=== PATIENT | female | born 1945 | race Caucasian/White ===

== ENCOUNTER 2020-02-29 12:54 | Outpatient (CLI) | payer MEDICARE, OTHER, SELFPAY ==
--- NOTE | ~2020-02-29 | US_ITS ---
EXAMINATION: US FNA w image guidance DATE: 02/29/2020 13:59 INDICATION: Left thyroid nodule. TECHNIQUE: The procedure and its benefits, risks, and benefits were discussed with the patient. Risks specifical ly discussed included bleeding. The patient verbalized understanding of the risks and agreed to proce ed. The neck was prepped and draped in the usual sterile manner. 1% lidocaine was used for local ane sthesia. 5 passes were made with a 25G needle into the lesion. Appropriate needle location was docu mented with continuous sonographic guidance. There were no immediate complications. The patient unde rstood to call the ordering physician for results after a week and a half and verbalized that underst anding. FINDINGS: Grayscale ultrasound images demonstrate needles advanced into a 2.6 cm left thyroid nodule for biopsy . IMPRESSION: 1. Ultrasound-guided fine needle aspiration of a left thyroid nodule. Reviewed, dictated and finalized at location A.
== END 2020-02-29 12:55 | disposition home or self-care (01) ==
PROVIDERS: PCP Family Medicine; Visit Provider Internal Medicine Endocrinology, Diabetes & Metabolism
DX: E04.1 Nontoxic single thyroid nodule (principal); R73.01 Impaired fasting glucose; E55.9 Vitamin D deficiency, unspecified; E03.9 Hypothyroidism, unspecified; E53.8 Deficiency of other specified B group vitamins
CPT/HCPCS: 10005; 88173; 88305

== ENCOUNTER 2020-05-21 01:31 | Outpatient (CLI) | payer MEDICARE, OTHER, SELFPAY ==
[2020-05-21 19:20] LABS: SARS-CoV-2 RNA PCR Negative
== END 2020-05-21 01:32 | disposition home or self-care (01) ==
LOC: ANHCOVIDDT 01:32
PROVIDERS: PCP Family Medicine; Visit Provider Obstetrics & Gynecology Gynecology
DX: Z01.812 Encounter for preprocedural laboratory examination (principal); Z20.828 Contact with and (suspected) exposure to other viral communicable diseases
CPT/HCPCS: 87635; C9803; U0003

== ENCOUNTER 2020-05-23 01:18 | Day surgery (SDC) | payer MEDICARE, OTHER, SELFPAY ==
[2020-05-14 13:54] VITALS: BMI 36.5
--- NOTE | 2020-05-23 07:42 | WPDANESEPPF ---
Anes - Initial Pre Proc Eval Procedure: Operation Date: 05/23/20 09:00 Proposed Procedures p Hysteroscopy, Dilation and Curettage - Sheron Torrez MD Date/Time: 05/23/20 07:42 Surgeon: Sheron Torrez MD Pre Op Diagnosis: post menopausal bleeding Patient Data Age: 74 Gender: F Height: 5 ft 7 in Weight: 105.69 kg Allergies Allergy/AdvReac Type Severity Reaction Status Date / Time No Known Allergies Allergy Unverified 05/14/20 13:55 Home Medications Medication Instructions Recorded Confirmed Type albuterol sulfate 1 puff INHALATION DIRECTED PRN 05/14/20 05/14/20 History alprazolam 1 mg PO DAILY PRN 05/14/20 05/14/20 History aspirin 81 mg PO DAILY 05/14/20 05/14/20 History cyanocobalamin (vitamin B-12) 1,000 mcg PO DAILY 05/14/20 05/14/20 History [Vitamin B-12] diclofenac sodium 1 g TOPICAL DIRECTED PRN 05/14/20 05/14/20 History diltiazem HCl 60 mg PO BID 05/14/20 05/14/20 History ergocalciferol (vitamin D2) 1,250 mcg PO WEEKLY 05/14/20 05/14/20 History [Vitamin D2] fluticasone propionate 1 spray INTRANASAL DAILY PRN 05/14/20 05/14/20 History furosemide 20 mg PO DAILY 05/14/20 05/14/20 History gabapentin 600 mg PO HS 05/14/20 05/14/20 History hydrocodone-acetaminophen 1 tablet PO Q6H PRN 05/14/20 05/14/20 History levothyroxine 88 mcg PO DAILY 05/14/20 05/14/20 History melatonin 5 mg PO HS 05/14/20 05/14/20 History pantoprazole 40 mg PO DAILY 05/14/20 05/14/20 History potassium chloride 10 meq PO DAILY 05/14/20 05/14/20 History rosuvastatin 40 mg PO DAILY 05/14/20 05/14/20 History Patient hx anesthesia problems: none Family hx anesthesia problems: none PMFSH Past Medical History Medical History (Updated 05/23/20 @ 07:43 by Ahmet Santiago MD) Anxiety GERD (gastroesophageal reflux disease) HTN (hypertension) Obesity MARY KAY (obstructive sleep apnea) Surgical History Surgical History (Updated 05/23/20 @ 07:44 by Ahmet Santiago MD) H/O exploratory laparotomy History of cholecystectomy History of total hip arthroplasty History of total knee arthroplasty Social History Social History Smoking status: Never smoker Spiritual care concerns: No Anes - Eval Final PreProcedure Day of Procedure 05/23/20 07:42 Patient weight: obese Heart: regular rate and rhythm Lungs: clear to auscultation Airway: Mallampati scale class II Neurological: alert and oriented Last oral intake: >/= 8 hours ASA classification: III Emergent: no Anesthetic plan: proceed Anesthesia type and monitoring: general and standard monitoring Informed Consent: The patient's anesthetic plan and its attendant risks and benefits were discussed with the patient/family/POA. Questions were solicited and answers provided to the satisfaction of the patient/family/POA.
[2020-05-23] MEDS: LACTATED RINGERS 1,000 ML 30 ML IV CONT (08:03)
[2020-05-23] MEDS: ACETAMINOPHEN 500 MG TABLET 1000 MG PO (08:07)
[2020-05-23 08:39] VITALS: BP 124/56; PULSE 81; RESP 16; TEMP 36.6; O2SAT 97; BMI 36.9
--- NOTE | 2020-05-23 09:11 | PM.HPGS ---
History of Present Illness History of Present Illness Consent: Risks, benefits, and alternatives have been discussed and questions answered. Patient agrees to proceed with procedure. Chief complaint: post menopausal bleeding Narrative: Anitha Carter is a 74 year old female with postmenopausal bleeding. Recommend to proceed with D&C hysteroscopy. Risks of infection, bleeding, perforation, and possible pathology reviewed. Agrees to proceed. [facility] Past Medical History Medical History (Updated 05/23/20 @ 09:13 by Sheron Torrez MD) Anxiety GERD (gastroesophageal reflux disease) History of hysteroscopy with large polyp 2014 HTN (hypertension) Obesity MARY KAY (obstructive sleep apnea) Surgical History Surgical History (Updated 05/23/20 @ 07:44 by Ahmet Santiago MD) H/O exploratory laparotomy History of cholecystectomy History of total hip arthroplasty History of total knee arthroplasty Social History Social History Smoking status: Never smoker Spiritual care concerns: No Meds Home Medications and Allergies Home Medications Medication Instructions Recorded Confirmed Type albuterol sulfate 1 puff INHALATION DIRECTED PRN 05/14/20 05/23/20 History alprazolam 1 mg PO DAILY PRN 05/14/20 05/23/20 History aspirin 81 mg PO DAILY 05/14/20 05/23/20 History cyanocobalamin (vitamin B-12) 1,000 mcg PO DAILY 05/14/20 05/23/20 History [Vitamin B-12] diclofenac sodium 1 g TOPICAL DIRECTED PRN 05/14/20 05/23/20 History diltiazem HCl 60 mg PO BID 05/14/20 05/23/20 History ergocalciferol (vitamin D2) 1,250 mcg PO WEEKLY 05/14/20 05/23/20 History [Vitamin D2] fluticasone propionate 1 spray INTRANASAL DAILY PRN 05/14/20 05/23/20 History furosemide 20 mg PO DAILY 05/14/20 05/23/20 History gabapentin 600 mg PO HS 05/14/20 05/23/20 History hydrocodone-acetaminophen 1 tablet PO Q6H PRN 05/14/20 05/23/20 History levothyroxine 88 mcg PO DAILY 05/14/20 05/23/20 History melatonin 5 mg PO HS 05/14/20 05/23/20 History pantoprazole 40 mg PO DAILY 05/14/20 05/23/20 History potassium chloride 10 meq PO DAILY 05/14/20 05/23/20 History rosuvastatin 40 mg PO DAILY 05/14/20 05/23/20 History Allergies Allergy/AdvReac Type Severity Reaction Status Date / Time No Known Allergies Allergy Verified 05/23/20 07:49 Vital Signs Vital Signs - 24 hr 05/23/20 08:39 Temperature 97.9 F Pulse Rate 81 Respiratory Rate 16 Blood Pressure 124/56 L Pulse Oximetry 97 Exam Const: General: healthy appearing and alert Orientation/consciousness: patient oriented x3 Resp: Effort & Inspection: normal respiratory effort Auscultation: clear to auscultation bilaterally Cardio: Rate: regular rate Rhythm: regular rhythm GI: GI Palp: Yes Soft to palpation, No Tenderness to palpation present (GI) and No Palpable mass present : External Female Exam: normal external appearance Speculum Exam - Vagina: normal appearance of the vagina and normal vaginal discharge Speculum Exam - Cervix: normal appearance of the cervix Bimanual exam- vagina & uterus: uterine size normal and consistency normal Bimanual Exam- Adnexa, other: normal adnexae and No adnexal tenderness Neuro: General: patient oriented x3 Assessment and Plan Assessment and plan (1) Post-menopausal bleeding: Code(s): N95.0 - Postmenopausal bleeding Status: Acute Assessment and Plan: proceed with hysteroscopy and D&C
[2020-05-23] MEDS: KETOROLAC 30 MG/ML VIAL (*BKC) IV PUSH (09:30)
--- NOTE | 2020-05-23 09:44 | SUR.OPER ---
975ML HYSTEROSCOPY IN AND 950 ML OUT
--- NOTE | 2020-05-23 09:50 | P.OP_ITS ---
Procedure Note - Detailed Date of procedure: 05/23/20 Pre-op diagnosis: post menopausal bleeding Post-op diagnosis: same Procedure performed: D&C hysteroscopy with myosure resection Description of procedure: The patient was taken to the operating room and placed in the dorsal lithotomy position under anesthesia. She was prepped and draped in the usual sterile fashion. [place] speculum was placed in the vagina and the cervix is grasped on the anterior lip with a tenaculum. The uterus is sounded to 10cm. The cervix is serially dilated with Hegars. The diagnostic hysteroscope was placed with the above-stated findings. The MyoSure device is opened and placed. Under direct visualization the polyp is excised. The MyoSure device is removed and the medium sharp curette was used to curette the endometrium until a good uterine cry is noted in all areas. All instruments are removed. The patient is taken to recovery in stable condition. Anesthesia: MAC and local Surgeon: Sheron Torrez MD Estimated blood loss (mL): 5 Drains: No Packing: No Pathology: yes (endometrial curettings and shavings) Complications: No immediate complications Condition: stable Disposition: PACU Findings: uterus 10 cm; large u shaped polyp attached on right lateral wall; otherwise atrophic appearing endometrium
[2020-05-23 09:51] VITALS: BP 128/52; PULSE 74; RESP 16; O2SAT 94
[2020-05-23 10:21] VITALS: BP 102/56; PULSE 64; RESP 16
== END 2020-05-23 10:50 | disposition home or self-care (01) ==
PROVIDERS: PCP Family Medicine; Visit Provider Obstetrics & Gynecology Gynecology
PROC: 0U5B8ZZ Destruction of Endometrium, Via Natural or Artificial Opening Endoscopic (ICD-10-PCS; CPT 58563; principal; 2020-05-23 09:00)
DX: N95.0 Postmenopausal bleeding (principal); N85.01 Benign endometrial hyperplasia; I10 Essential (primary) hypertension; K21.9 Gastro-esophageal reflux disease without esophagitis; G47.33 Obstructive sleep apnea (adult) (pediatric); F41.9 Anxiety disorder, unspecified; Z79.82 Long term (current) use of aspirin; E66.9 Obesity, unspecified; Z68.36 Body mass index [BMI] 36.0-36.9, adult
CPT/HCPCS: 58558; 88305; A9270; J1885; J2704; J3010; J7030; J7120

== ENCOUNTER → 2021-02-04 13:21 | Outpatient (CLI) | payer MEDICARE, SELFPAY ==
--- NOTE | ~2021-02-04 | DEXA_ITS ---
Bone Density Report Name: Anitha Carter Age: 75 Sex: Female Ethnicity: White Date of : 1945 Indication: monitoring treatment; height loss; prior fracture; postmenopausal Referring Provider: ANTONIO MAJANO Study: Bone densitometry was performed. Exam Date: February 04, 2021 Accession number: [id number] Bone Density: Region BMD T-score Z-score Classification AP Spine (L1-L4) 1.214 1.5 4.0 Normal World Health Organization criteria for BMD impression classify patients as: Normal (T-score at or above -1.0), Osteopenia (T-score between -1.0 and -2.5), or Osteoporosis (T-score at or below -2.5). Previous Exams: Region Exam Age BMD T-score BMD Change BMD Change Date g/cm2 vs Baseline vs Previous AP Spine(L1-L4) 02/04/2021 75 1.214 1.5 0.128 0.038* 07/06/2017 71 1.176 1.2 0.090 0.041 06/30/2015 69 1.135 0.8 0.049* 0.031* 06/20/2013 67 1.104 0.5 0.018 0.018 05/12/2011 65 1.086 0.4 *Denotes significance at 95% confidence level, LSC for AP Spine = 0.022 g/cm2 Clinical Information Provided by Patient: Has had a low trauma fracture Is being treated for osteoporosis Has used the following medications: HRT (i.e. estrogen/hormone therapy), Vitamin D, MTV Patient maximum height was 69.75 Menopause Age: 49 No regular weight bearing exercise Does not regularly consume dairy products Drinks caffeinated beverages Onset of menses at age 10 Number of children 5 Impression: The patient has normal bone mass. The patient has risk factors, including: previous fracture. No significant bone loss was observed. Discussion: PATIENT UNDER TREATMENT WITH NO SIGNIFICANT BMD LOSS SINCE LAST EXAM. In an untreated patient, BMD typically declines with age. A lack of decline or gain is usually a sign that treatment is efficacious and fracture risk is reduced. It is important to ask patients whether they are taking their medications and to encourage continued and appropriate compliance with their osteoporosis therapies to reduce fracture risk. It is also important to review their risk factors and encourage appropriate calcium and vitamin D intakes, exercise, fall prevention and other lifestyle measures. Follow-Up: Consider a repeat BMD and Vertebral Fracture Assessment (VFA) exam in 2 years or sooner if medically necessary, to reassess this patient's status. Reported by: ANIL on 02/04/2021 1:46:00 PM. Reviewed, dictated and finalized at location ALj CHEEK
--- NOTE | ~2021-02-04 | MM_ITS ---
EXAMINATION: MM screening ifeanyi BI w geovany HISTORY: Screening mammogram TECHNIQUE: Craniocaudal and mediolateral oblique 3-D tomosynthesis images were obtained and synthetic 2-D images were generated. CAD analysis was submitted and interpreted. COMPARISON: 10/04/2018, 07/06/2017, 07/05/2016 bilateral digital screening mammogram examinations BREAST PARENCHYMAL COMPOSITION: There are scattered areas of fibroglandular density. FINDINGS: There is no evidence of suspicious mass, calcification, or architectural distortion to sugg est malignancy in either breast. There has been no suspicious interval change. IMPRESSION: 1. No mammographic evidence of malignancy. 2. Recommend routine screening mammography in one year. BI-RADS Category 1: Negative Reviewed, dictated and finalized at location D.
== END ==
PROVIDERS: PCP Family Medicine; Visit Provider Obstetrics & Gynecology Gynecology
DX: Z12.31 Encounter for screening mammogram for malignant neoplasm of breast (principal); Z78.0 Asymptomatic menopausal state
CPT/HCPCS: 77063; 77067; 77080

== ENCOUNTER → 2021-03-05 13:51 | Outpatient (CLI) | payer MEDICARE, SELFPAY ==
--- NOTE | ~2021-03-05 | US_ITS ---
EXAMINATION: US transvaginal DATE: 03/05/2021 14:24 INDICATION: Postmenopausal bleeding. TECHNIQUE: Multiple transvaginal sonographic images of the pelvis were obtained. COMPARISON: None. FINDINGS: The uterus measures 8.9 x 4.7 x 4.7 cm. There is no free fluid in the pelvis. The endometrial complex measures 15 mm in thickness. The ovaries are not visualized. IMPRESSION: 1. Thickened endometrial complex. The differential diagnosis includes endometrial hyperplasia, polyp, and carcinoma. Biopsy is recommended. Reviewed, dictated and finalized at location A. IMPRESSION: 1. Thickened endometrial complex. The differential diagnosis includes endometri al hyperplasia, polyp, and carcinoma. Biopsy is recommended.
== END ==
PROVIDERS: PCP Family Medicine; Visit Provider Obstetrics & Gynecology Gynecology
DX: N95.0 Postmenopausal bleeding (principal)
CPT/HCPCS: 76830

== ENCOUNTER → 2021-03-24 01:03 | Outpatient (CLI) | payer MEDICARE, SELFPAY ==
[2021-03-24 17:38] LABS: SARS-CoV-2 RNA PCR Negative
== END ==
PROVIDERS: PCP Family Medicine; Visit Provider Obstetrics & Gynecology Gynecology
DX: Z01.812 Encounter for preprocedural laboratory examination (principal); Z20.822 Contact with and (suspected) exposure to COVID-19
CPT/HCPCS: C9803; U0003; U0005

== ENCOUNTER 2021-03-26 11:30 | Outpatient (CLI) | payer MEDICARE, SELFPAY ==
[2021-03-26 12:03] LABS: Anion Gap 8 mmol/L (8-16); Blood Urea Nitrogen 13 mg/dL (7-17); Calcium 10.2 mg/dL (8.4-10.2); Carbon Dioxide 28 mmol/L (22-30); Chloride 105 mmol/L (98-107); Estimated Glomerular Filt Rate 48; Glucose 109 mg/dL (65-105); Potassium 4.4 mmol/L (3.4-5.0); Sodium 141 mmol/L (137-145)
== END 2021-03-26 11:31 | disposition home or self-care (01) ==
LOC: ANHSURGERY 11:35
PROVIDERS: Anesthesiology; PCP Family Medicine; Visit Provider Obstetrics & Gynecology Gynecology
DX: I10 Essential (primary) hypertension (principal); Z01.818 Encounter for other preprocedural examination
CPT/HCPCS: 36415; 80048

== ENCOUNTER 2021-03-27 00:49 | Day surgery (SDC) | payer MEDICARE, SELFPAY ==
[2021-03-25 12:15] VITALS: BMI 34.2
[2021-03-27 06:30] VITALS: BP 135/81; PULSE 89; RESP 20; TEMP 36.4; O2SAT 98
--- NOTE | 2021-03-27 07:20 | WPDHPUPDATE1 ---
History and Physical Update Update Date/Time: 03/27/21 07:20 History and Physical has been reviewed, including an updated exam of the patient. There are NO changes in the patient's condition. Risks, benefits, and alternatives have been discussed and questions answered. Patient agrees to proceed with procedure.
--- NOTE | 2021-03-27 07:20 | PM.HPGS ---
History of Present Illness History of Present Illness Consent: Risks, benefits, and alternatives have been discussed and questions answered. Patient agrees to proceed with procedure. Chief complaint: post menopausal bleeding Narrative: Anitha Carter is a 75 year old female with a history simple hyperplasia without atypia in May of 2020. Repeat biopsy after progesterone revealed normal endometrium. Patient has postmenopausal bleeding and ultrasound was repeated showing lining to be 15mm. Is recommended to proceed with a repeat hysteroscopy D&C and the patient agrees to proceed. Risks of infection, bleeding, and perforation are reviewed. Possible pathology is discussed. Review of Systems Constitutional: Constitutional: Reports fatigue Gastrointestinal: Gastrointestinal: Reports constipation [facility] Past Medical History Medical History (Updated 03/27/21 @ 07:27 by Sheron Torrez MD) Anxiety GERD (gastroesophageal reflux disease) HTN (hypertension) Hypercholesteremia Hypothyroid (normal spontaneous vaginal delivery) x 4 Obesity MARY KAY (obstructive sleep apnea) Surgical History Surgical History (Updated 03/27/21 @ 07:27 by Sheron Torrez MD) H/O exploratory laparotomy H/O thyroidectomy History of section, low transverse History of cholecystectomy History of hysteroscopy with large polyp 2014 endometrial hyperplasia-simple without atypia 05/2020 History of repair of hiatal hernia History of total hip arthroplasty bilateral History of total knee arthroplasty Social History Social History Years smoked: 5 Smoking status: Former smoker Tobacco type: cigarettes Smoking end date: 09/12/69 Living arrangements: with family Spiritual care concerns: No Meds Home Medications and Allergies Home Medications Medication Instructions Recorded Confirmed Type alprazolam 1 mg PO BID PRN 05/14/20 03/25/21 History diclofenac sodium 1 g TOPICAL DIRECTED PRN 05/14/20 03/25/21 History diltiazem HCl 60 mg PO BID 05/14/20 03/25/21 History ergocalciferol (vitamin D2) 1,250 mcg PO WEEKLY 05/14/20 03/25/21 History [Vitamin D2] fluticasone propionate 1 spray INTRANASAL DAILY PRN 05/14/20 03/25/21 History furosemide 20 mg PO DAILY 05/14/20 03/25/21 History gabapentin 600 mg PO HS 05/14/20 03/25/21 History hydrocodone-acetaminophen 1 tablet PO Q6H PRN 05/14/20 03/25/21 History levothyroxine 88 mcg PO DAILY 05/14/20 03/25/21 History melatonin 5 mg PO HS 05/14/20 03/25/21 History potassium chloride 10 meq PO DAILY 05/14/20 03/25/21 History rosuvastatin 40 mg PO HS 05/14/20 03/25/21 History ascorbic acid (vitamin C) 500 mg PO DAILY 03/25/21 03/25/21 History aspirin 325 mg PO DAILY 03/25/21 03/25/21 History multivit,Ca,xsjs-EK-odslgz-lut 1 tablet PO DAILY 03/25/21 03/25/21 History [Complete Multi] norethindrone acetate 5 mg PO HS 03/25/21 03/25/21 History promethazine 25 mg PO PRN PRN 03/25/21 03/25/21 History Allergies Allergy/AdvReac Type Severity Reaction Status Date / Time No Known Allergies Allergy Verified 03/25/21 12:02 Exam Const: General: healthy appearing and alert Orientation/consciousness: patient oriented x3 Resp: Effort & Inspection: normal respiratory effort Auscultation: clear to auscultation bilaterally Cardio: Rate: regular rate Rhythm: regular rhythm GI: GI Palp: Yes Soft to palpation, No Tenderness to palpation present (GI) and No Palpable mass present : External Female Exam: normal external appearance Speculum Exam - Vagina: normal appearance of the vagina, normal vaginal discharge and other (dark blood present) Speculum Exam - Cervix: normal appearance of the cervix Bimanual exam- vagina & uterus: uterine size normal and consistency normal Bimanual Exam- Adnexa, other: normal adnexae and No adnexal tenderness Neuro: General: patient oriented x3 Assessment and Plan Assessment and
--- NOTE | 2021-03-27 07:21 | WPDANESEPPF ---
Anes - Initial Pre Proc Eval Procedure: Operation Date: 03/27/21 08:15 Proposed Procedures p Hysteroscopy Dilation and Curettage - Sheron Torrez MD Date/Time: 03/27/21 07:21 Surgeon: Sheron Torrez MD Pre Op Diagnosis: post menopausal bleeding Patient Data Age: 75 Gender: F Height: 1.73 m Weight: 102.1 kg Allergies Allergy/AdvReac Type Severity Reaction Status Date / Time No Known Allergies Allergy Verified 03/25/21 12:02 Home Medications Medication Instructions Recorded Confirmed Type alprazolam 1 mg PO BID PRN 05/14/20 03/25/21 History diclofenac sodium 1 g TOPICAL DIRECTED PRN 05/14/20 03/25/21 History diltiazem HCl 60 mg PO BID 05/14/20 03/25/21 History ergocalciferol (vitamin D2) 1,250 mcg PO WEEKLY 05/14/20 03/25/21 History [Vitamin D2] fluticasone propionate 1 spray INTRANASAL DAILY PRN 05/14/20 03/25/21 History furosemide 20 mg PO DAILY 05/14/20 03/25/21 History gabapentin 600 mg PO HS 05/14/20 03/25/21 History hydrocodone-acetaminophen 1 tablet PO Q6H PRN 05/14/20 03/25/21 History levothyroxine 88 mcg PO DAILY 05/14/20 03/25/21 History melatonin 5 mg PO HS 05/14/20 03/25/21 History potassium chloride 10 meq PO DAILY 05/14/20 03/25/21 History rosuvastatin 40 mg PO HS 05/14/20 03/25/21 History ascorbic acid (vitamin C) 500 mg PO DAILY 03/25/21 03/25/21 History aspirin 325 mg PO DAILY 03/25/21 03/25/21 History multivit,Ca,nmqw-KQ-hxsdbk-lut 1 tablet PO DAILY 03/25/21 03/25/21 History [Complete Multi] norethindrone acetate 5 mg PO HS 03/25/21 03/25/21 History promethazine 25 mg PO PRN PRN 03/25/21 03/25/21 History Patient hx anesthesia problems: none Family hx anesthesia problems: none PMFSH Past Medical History Medical History Anxiety GERD (gastroesophageal reflux disease) HTN (hypertension) Obesity MARY KAY (obstructive sleep apnea) Surgical History Surgical History H/O exploratory laparotomy History of cholecystectomy History of hysteroscopy with large polyp 2014 History of total hip arthroplasty History of total knee arthroplasty Social History Social History Years smoked: 5 Smoking status: Former smoker Tobacco type: cigarettes Smoking end date: 09/12/69 Living arrangements: with family Spiritual care concerns: No Anes - Eval Final PreProcedure Day of Procedure 03/27/21 07:21 Patient weight: obese Heart: regular rate and rhythm Lungs: clear to auscultation Airway: Mallampati scale class II Neurological: alert and oriented Last oral intake: >/= 8 hours ASA classification: III Emergent: no Anesthetic plan: proceed Anesthesia type and monitoring: general GIVS and standard monitoring Informed Consent: The patient's anesthetic plan and its attendant risks and benefits were discussed with the patient/family/POA. Questions were solicited and answers provided to the satisfaction of the patient/family/POA.
[2021-03-27] MEDS: LACTATED RINGERS 1,000 ML 30 ML IV CONT (08:10)
[2021-03-27] MEDS: ACETAMINOPHEN 500 MG TABLET 1000 MG PO (08:15)
[2021-03-27 08:53] VITALS: BP 126/70; PULSE 72; RESP 16; O2SAT 100
--- NOTE | 2021-03-27 08:54 | W.PM.PROC2 ---
Procedure Note - Detailed Date of Procedure 03/27/21 Pre-op Diagnosis post menopausal bleeding Post-op Diagnosis same Procedure Performed D&C hysteroscopy with MyoSure resection Surgeon Sheron Torrez MD Anesthesia MAC and local Findings uterus sounds to 9cm; multiple polyps; the remainder of the endometrium appears atrophic Description of Procedure the patient was taken to the operating room and placed under anesthesia in the dorsal lithotomy position. She is prepped and draped in the usual sterile fashion. [place] speculum was placed in the vagina and the cervix is grasped on the anterior lip with a tenaculum. The cervix is injected with 1% lidocaine in each quadrant. The uterus is sounded to 9cm. The cervix was serially dilated with Hegars. The diagnostic hysteroscope was placed with the stated findings. The MyoSure device is opened and placed and the polyps are removed. The MyoSure device is removed. Sharp curette is used to curette the endometrium until a good uterine cry was noted in all areas. Minimal material is obtained. All instruments are removed and the patient awakened from anesthesia and taken to recovery in stable condition. The sponge, needle, and instrument counts are correct per the OR staff. Estimated Blood Loss 5 Drains No Packing No Pathology yes ( Endometrial shavings and curettings) Complications No immediate complications Condition stable Disposition PACU
[2021-03-27] MEDS: fentaNYL CITRATE INJ (*CRX) 100 MCG/2 ML VIAL 25 MCG IV PUSH ×4 (09:10→09:32)
[2021-03-27 09:20] VITALS: BP 149/64; PULSE 69; RESP 18; O2SAT 98
[2021-03-27] MEDS: KETOROLAC 30 MG/ML VIAL (*BKC) IV PUSH (09:40)
[2021-03-27 09:50] VITALS: BP 134/61; PULSE 68; RESP 18; O2SAT 97
[2021-03-27 10:10] VITALS: BP 135/64; PULSE 68; RESP 18; O2SAT 98
== END 2021-03-27 10:23 | disposition home or self-care (01) ==
PROVIDERS: PCP Family Medicine; Visit Provider Obstetrics & Gynecology Gynecology
PROC: 0U5B8ZZ Destruction of Endometrium, Via Natural or Artificial Opening Endoscopic (ICD-10-PCS; CPT 58563; principal; 2021-03-27 08:15)
DX: N95.0 Postmenopausal bleeding (principal); N84.0 Polyp of corpus uteri; I10 Essential (primary) hypertension; G47.33 Obstructive sleep apnea (adult) (pediatric); K21.9 Gastro-esophageal reflux disease without esophagitis; F41.9 Anxiety disorder, unspecified; E66.9 Obesity, unspecified; Z68.32 Body mass index [BMI] 32.0-32.9, adult; Z87.891 Personal history of nicotine dependence
CPT/HCPCS: 58558; 88305; A9270; J1885; J2250; J2405; J2704; J3010; J7030; J7120

== ENCOUNTER → 2021-07-10 02:27 | Outpatient (CLI) | payer MEDICARE, SELFPAY ==
[2021-07-10 17:01] LABS: SARS-CoV-2 RNA PCR Negative
== END ==
PROVIDERS: PCP Family Medicine; Visit Provider Obstetrics & Gynecology Gynecology
DX: Z01.812 Encounter for preprocedural laboratory examination (principal); Z20.822 Contact with and (suspected) exposure to COVID-19
CPT/HCPCS: C9803; U0003; U0005

== ENCOUNTER 2021-07-10 08:36 | Outpatient (CLI) | payer MEDICARE, SELFPAY ==
--- NOTE | 2021-07-10 08:45 | ECG_ITS ---
Measurements Intervals [place] Rate: 71 P: 37 TN: 164 QRS: -6 QRSD: 90 T: 17 QT: 372 QTc: 407 Interpretive Statements SINUS RHYTHM VOLTAGE CRITERIA FOR LVH BASELINE ARTIFACT- I, II, AVR, AVL, AVF BORDERLINE ECG Electronically Signed On 07-10-2021 8:56:25 CDT by Vishnu Artis D.O.
[2021-07-10 09:46] LABS: Anion Gap 8 mmol/L (8-16); Blood Urea Nitrogen 14 mg/dL (7-17); Calcium 10.2 mg/dL (8.4-10.2); Carbon Dioxide 27 mmol/L (22-30); Chloride 107 mmol/L (98-107); Estimated Glomerular Filt Rate 44; Glucose 100 mg/dL (65-110); Potassium 4.1 mmol/L (3.4-5.0); Sodium 142 mmol/L (137-145)
== END 2021-07-10 08:37 | disposition home or self-care (01) ==
LOC: ANHSURGERY 08:41
PROVIDERS: Anesthesiology; PCP Family Medicine; Visit Provider Obstetrics & Gynecology Gynecology
DX: Z01.818 Encounter for other preprocedural examination (principal); Z79.899 Other long term (current) drug therapy; N95.0 Postmenopausal bleeding; I10 Essential (primary) hypertension
CPT/HCPCS: 36415; 80048; 86850; 86900; 86901; 93005; C9803; U0003; U0005

== ENCOUNTER 2021-07-13 10:31 | Inpatient (IN) | payer MEDICARE, SELFPAY ==
[2021-07-06 15:38] VITALS: BMI 32.0
[2021-07-13] VITALS (11 sets, daily range): BP systolic 108–173; BP diastolic 56–76; PULSE 70–93; RESP 11–21; TEMP 36.1–37.2; O2SAT 93–99; BMI 33.6
--- NOTE | 2021-07-13 06:50 | WPDANESEPPF ---
Anes - Initial Pre Proc Eval Procedure: Operation Date: 07/13/21 07:30 Proposed Procedures p Laparoscopic Assisted Vaginal Hysterectomy With Possible Bilateral Salpingo-oophorectomy - Sheron Torrez MD Date/Time: 07/13/21 06:50 Surgeon: Sheron Torrez MD Pre Op Diagnosis: Post Menopausal Bleeding Patient Data Age: 75 Gender: F Height: 1.73 m Weight: 95.5 kg Allergies Allergy/AdvReac Type Severity Reaction Status Date / Time No Known Allergies Allergy Verified 07/06/21 15:37 Home Medications Medication Instructions Recorded Confirmed Type alprazolam 1 mg PO BID PRN 05/14/20 07/06/21 History diclofenac sodium 1 g TOPICAL DIRECTED PRN 05/14/20 07/06/21 History diltiazem HCl 60 mg PO BID 05/14/20 07/06/21 History ergocalciferol (vitamin D2) 1,250 mcg PO WEEKLY 05/14/20 07/06/21 History [Vitamin D2] fluticasone propionate 1 spray INTRANASAL DAILY PRN 05/14/20 07/06/21 History furosemide 20 mg PO DAILY 05/14/20 07/06/21 History gabapentin 600 mg PO HS 05/14/20 07/06/21 History hydrocodone-acetaminophen 1 tablet PO Q6H PRN 05/14/20 07/06/21 History levothyroxine 88 mcg PO DAILY 05/14/20 07/06/21 History melatonin 5 mg PO HS 05/14/20 07/06/21 History potassium chloride 10 meq PO DAILY 05/14/20 07/06/21 History rosuvastatin 40 mg PO HS 05/14/20 07/06/21 History ascorbic acid (vitamin C) 500 mg PO DAILY 03/25/21 07/06/21 History aspirin 325 mg PO DAILY 03/25/21 07/06/21 History multivit,Ca,bzyt-XA-axitum-lut 1 tablet PO DAILY 03/25/21 07/06/21 History [Complete Multi] norethindrone acetate 5 mg PO HS 03/25/21 07/06/21 History promethazine 25 mg PO PRN PRN 03/25/21 07/06/21 History Patient hx anesthesia problems: none Family hx anesthesia problems: none Results Review: All pre-operative results and documents have been reviewed as part of the pre-operative evaluation. [facility]LY [facility] Past Medical History Medical History Anxiety GERD (gastroesophageal reflux disease) HTN (hypertension) Hypercholesteremia Hypothyroid (normal spontaneous vaginal delivery) x 4 Obesity MARY KAY (obstructive sleep apnea) Surgical History Surgical History H/O exploratory laparotomy H/O thyroidectomy History of section, low transverse History of cholecystectomy History of hysteroscopy with large polyp 2014 endometrial hyperplasia-simple without atypia 05/2020 History of repair of hiatal hernia History of total hip arthroplasty bilateral History of total knee arthroplasty Social History Social History Years smoked: 5 Smoking status: Former smoker Tobacco type: cigarettes Second hand tobacco smoke exposure: No Smoking end date: 09/12/69 Alcohol intake: never Substance use: never Substance use type: does not use Living arrangements: with family Spiritual care concerns: No Anes - Eval Final PreProcedure Day of Procedure 07/13/21 06:50 Patient weight: obese Heart: regular rate and rhythm Lungs: clear to auscultation Airway: Mallampati scale class II Neurological: alert and oriented Last oral intake: >/= 8 hours ASA classification: III Emergent: no Anesthetic plan: proceed Anesthesia type and monitoring: general ETT and standard monitoring Results Review: All pre-operative results and documents have been reviewed as part of the pre-operative evaluation. Informed Consent: The patient's anesthetic plan and its attendant risks and benefits were discussed with the patient/family/POA. Questions were solicited and answers provided to the satisfaction of the patient/family/POA.
--- NOTE | 2021-07-13 07:10 | PM.IMHP ---
H&P: HPI History of Present Illness Date/Time: 07/13/21 07:10 The patient is a 75-year-old 5 para 5 admitted for laparoscopic-assisted total vaginal hysterectomy with possible bilateral salpingo-oophorectomy. The patient has had postmenopausal bleeding with history of hyperplasia. Multiple doses of progesterone have been tried and the patient has persistent postmenopausal bleeding. Repeat endometrial biopsies have been normal. Due to the risk of recurrence hyperplasia and possible endometrial cancer, the plan is to proceed with hysterectomy. The patient has had 1 history of with tubal ligation as well as an exploratory laparotomy due to an abscess in the pelvis. Therefore, will be doing a laparoscopic assisted vaginal hysterectomy to evaluate for scar tissue and the feasibility of doing vaginal hysterectomy. If possible the patient would prefer her ovaries and tubes to be removed. Risks of infection, bleeding, injury to internal organs (bowel, bladder, ureters), deep vein thrombosis, and general anesthesia were reviewed. Possible pathology was reviewed. The potential for an open procedure if excessive scar tissue was noted was also discussed. Patient voices understanding and agrees to proceed. Chief Complaint: Postmenopausal bleeding Review of Systems Constitutional: Constitutional: Reports fatigue Gastrointestinal: Gastrointestinal: Reports constipation [facility] Past Medical History Medical History Anxiety GERD (gastroesophageal reflux disease) HTN (hypertension) Hypercholesteremia Hypothyroid (normal spontaneous vaginal delivery) x 4 Obesity MARY KAY (obstructive sleep apnea) Surgical History Surgical History (Updated 07/13/21 @ 07:15 by Sheron Torrez MD) H/O exploratory laparotomy History of pelvic abscess 1970 H/O thyroidectomy History of section, low transverse With bilateral tubal ligation History of cholecystectomy History of hysteroscopy with large polyp 2014 endometrial hyperplasia-simple without atypia 05/2020 History of repair of hiatal hernia History of total hip arthroplasty bilateral History of total knee arthroplasty Social History Social History Years smoked: 5 Smoking status: Former smoker Tobacco type: cigarettes Second hand tobacco smoke exposure: No Smoking end date: 09/12/69 Alcohol intake: never Substance use: never Substance use type: does not use Living arrangements: with family Spiritual care concerns: No Meds Home Medications and Allergies Home Medications Medication Instructions Recorded Confirmed Type alprazolam 1 mg PO BID PRN 05/14/20 07/06/21 History diclofenac sodium 1 g TOPICAL DIRECTED PRN 05/14/20 07/06/21 History diltiazem HCl 60 mg PO BID 05/14/20 07/06/21 History ergocalciferol (vitamin D2) 1,250 mcg PO WEEKLY 05/14/20 07/06/21 History [Vitamin D2] fluticasone propionate 1 spray INTRANASAL DAILY PRN 05/14/20 07/06/21 History furosemide 20 mg PO DAILY 05/14/20 07/06/21 History gabapentin 600 mg PO HS 05/14/20 07/06/21 History hydrocodone-acetaminophen 1 tablet PO Q6H PRN 05/14/20 07/06/21 History levothyroxine 88 mcg PO DAILY 05/14/20 07/06/21 History melatonin 5 mg PO HS 05/14/20 07/06/21 History potassium chloride 10 meq PO DAILY 05/14/20 07/06/21 History rosuvastatin 40 mg PO HS 05/14/20 07/06/21 History ascorbic acid (vitamin C) 500 mg PO DAILY 03/25/21 07/06/21 History aspirin 325 mg PO DAILY 03/25/21 07/06/21 History multivit,Ca,cipt-BM-xitygg-lut 1 tablet PO DAILY 03/25/21 07/06/21 History [Complete Multi] norethindrone acetate 5 mg PO HS 03/25/21 07/06/21 History promethazine 25 mg PO PRN PRN 03/25/21 07/06/21 History Allergies Allergy/AdvReac Type Severity Reaction Status Date / Time No Known Allergies Allergy Verified 07/13/21 06:59 Exam Const: General: healthy appearing
--- NOTE | 2021-07-13 07:24 | WPDHPUPDATE1 ---
History and Physical Update Update Date/Time: 07/13/21 07:24 History and Physical has been reviewed, including an updated exam of the patient. There are NO changes in the patient's condition. Risks, benefits, and alternatives have been discussed and questions answered. Patient agrees to proceed with procedure.
[2021-07-13] MEDS: LACTATED RINGERS 1,000 ML 30 ML IV CONT ×2 (07:27→09:28)
[2021-07-13] MEDS: KETOROLAC 15 MG/ML VIAL (*BKC) IV PUSH (07:28)
[2021-07-13] MEDS: ACETAMINOPHEN 500 MG TABLET 1000 MG PO (07:28)
[2021-07-13] MEDS: ceFAZolin 2 GM/D5W 50 ML 2 GM/50 ML BAG IVPB (07:29)
--- NOTE | 2021-07-13 08:40 | SUR.OPER ---
0805 - Dr. Torrez converted to open. Patient's legs taken out of lithotomy and resting on OR table. Both arms resting on padded arm board less than 90 degress with safety strap. Personnel at bedside. Dr. Torrez present for positioning.
--- NOTE | 2021-07-13 09:07 | PC.NURSE ---
Report to the Outpatient Waiting Room, entrance under the green pavilion located off [facility], at time ___829____ on date _08/04/21 . OR Time: ____1029____. - You and your visitor will be asked a series of questions to screen for COVID 19 for your protection. - A mask is required within the hospital. - Only one visitor is allowed at this time. Patient visitors will be guided where to wait when not with patient. Preoperative COVID Testing Requirements: No COVID Test needed if: (proof is required; if not received patient will have Rapid Test prior to entry) - Patient has received COVID Vaccine at least 14 days prior to procedure date or - Patient has positive COVID test result within last 90 days of surgery date. COVID Test needed if above criteria is not met If not COVID vaccinated a COVID test must be conducted within 72 hours of surgery and patient is asked to isolate self from time of testing until procedure. You will go to the [facility] for your COVID testing. The [facility] Testing site is located at the corner of [address] [facility]. You will only be called if COVID results are positive and your surgeon may reschedule your elective surgery date. Patients may have clear liquids (water, carbonated beverages, clear teas, apple juice) until 3 hours prior to surgery with a maximum of 20 ounces. - No food from midnight until time of surgery - Infants may have breast milk until 4 hours before surgery, infant formula 6 hours prior to surgery. - Children will be allowed to drink immediately following surgery. If applicable, please bring a bottle or sippy cup to assist with drinking. Juice, water, soda, and popsicles are readily available. For infants on formula, please bring formula the day of surgery. Pacifiers are allowed. Take the following medications with a SIP of water the morning of surgery: METOPROLOL Medications to discontinue per physician _ASPIRIN & IBUPROFEN 7 DAYS PRE-OP, ALL VITAMINS/SUPPLEMENTS 3 DAYS PRE-OP Date to take last dose Please no make-up, nail romansh, hairspray, perfume, deodorant, or body powder the day of surgery. No jewelry (including any body piercings) or valuables the day of surgery, leave them at home. Please take a shower or bath the night before, or the morning of, surgery with an antibacterial soap. Wear comfortable, loose fitting clothing. Children are encouraged to wear pajamas. - Jewelry must be removed prior to entering the operating room. Rings and piercings that are not removed may be cut off. - The hospital will not accept responsibility for valuables. - Please leave all valuables, including medications, at home the day of surgery. If you are going home after surgery, a licensed rear load truck driver must drive you home. - NO public transportation without another adult. - We recommend that an adult stay with you for 24 hours following discharge. - We also recommend that you do not drive, make important decision, drink alcoholic beverages, or take any drugs that were not prescribed by your health care provider for at least 24 hours after your discharge time. For Pediatric surgeries, we recommend two adults accompany the child home (only one inside the building at this time). Follow any additional instructions given to you from your surgeon. Telephone instructions given to and asked if any additional questions and then verbalized understanding. Patient advised to call surgeon office or pre surgery nurse liaison [phone] if any additional questions.
--- NOTE | 2021-07-13 09:08 | W.PM.PROC2 ---
Procedure Note - Detailed Date of Procedure 07/13/21 Pre-op Diagnosis Post Menopausal Bleeding Post-op Diagnosis same Procedure Performed Diagnostic laparoscopy; total abdominal hysterectomy bilateral salpingo-oophorectomy Surgeon Sheron Torrez MD Anesthesia general Findings Tubes, ovaries, and uterus appear grossly normal. Findings on laparoscopy revealed the small bowel to be very adherent to the left pelvis between the uterus and adnexa going down to the level of the cervix. The bladder flap was densely adherent on the right side. Description of Procedure The patient was taken to the operating room and placed under anesthesia in the dorsal lithotomy position. She was prepped and draped in the usual sterile fashion. Jack catheter was previously placed per the OR staff. [place] speculum was placed in the vagina and the cervix grasped on the anterior lip with tenaculum. [place] manipulator was placed. Attention was turned to the abdomen where a vertical skin incision is made at the base of the umbilicus. The abdomen is tented and the Veress needle placed. Water drop test was normal. Opening patient pressure was 4mmHg. Pneumoperitoneum was obtained to a patient pressure of 15mmHg. The Veress needle was removed and the 5mm Optiview trocars placed. Intra-abdominal placement was confirmed with the laparoscope. The patient is placed in Trendelenburg and a skin incision was made in the midline 2cm above the symphysis pubis. 5mm trocar was placed under direct visualization. Blunt probe is then used to inspect the pelvis with the above-stated findings. Due to the dense adhesions of the bowel into space I cannot visualize decision was made to proceed with total abdominal hysterectomy. Laparoscopic instruments are removed and the abdomen is covered. The patient was repositioned in the dorsal supine position. She was additionally draped. A Pfannenstiel skin incision was made with a scalpel and carried down to the underlying layer of fascia which was incised in the midline and extended laterally using thompson scissors. Ochsners were used to tent the fascia which was then dissected off using sharp and blunt dissection. The rectus muscles were in the midline and the peritoneum entered bluntly. The peritoneal incision is extended with blunt traction. Bowel was packed away using moist laparotomy sponges and the Jillian retractor placed. The uterus is grasped on the cornu with large peans. The bowel that is adherent to the left pelvic sidewall is dissected off using blunt dissection until it was fully dissected free from the uterus and cervix and adnexa. This bowel was then packed away using a laparotomy sponge. The round ligaments were doubly ligated with 0 Vicryl transected and the anterior leaf of the broad ligament incised meeting in the midline over the bladder flap. The bladder flap was dissected off using sharp and blunt dissection. The utero sacral ligaments are isolated and a window was created in the posterior leaf of the broad ligament. The pedicle was clamped transected and suture ligated with 0 Vicryl. The uterine vessels are skeletonized, clamped, and transected. The pedicles were tied off using 0 Vicryl in a Cherelle stitch. The cardinal and uterosacral ligaments were serially clamped transected and suture ligated with 0 Vicryl. The uterosacral ligaments were tagged for future use. The vaginal cuff was entered during this process. The Allis clamps were used to grasp the vaginal cuff anteriorly and posteriorly. The specimen was amputated using Jorgensons. The vaginal cuff was closed using 0 Vicryl in a running lock stitch. Each angle was tied to the ipsilateral uterosacral ligaments that were previously tagged. The pelvis was irrigated and noted to be hemostatic. Sponge and instruments are removed. The fascia is closed using 0 Vicryl in a running fashion. Subcutaneous tissues were irrigated made hemostatic using Bovie cau
--- NOTE | 2021-07-13 09:20 | PM.DS ---
DS: Admitting Diagnosis Discharge Date 07/15/21 Admitting Diagnosis Postmenopausal bleeding DS: Discharge Diagnosis Discharge Diagnosis (1) Post-menopausal bleeding: Code(s): N95.0 - Postmenopausal bleeding Status: Acute (2) S/P laparoscopy: Code(s): Z98.890 - Other specified postprocedural states Status: Acute (3) S/P GUSTAVO-BSO: Code(s): Z90.710 - Acquired absence of both cervix and uterus; Z90.722 - Acquired absence of ovaries, bilateral; Z90.79 - Acquired absence of other genital organ(s) Status: Acute DS: Summary Hospital Course Reason for hospitalization: Postop care Hospital Course: At the time of discharge, patient is tolerating regular diet, voiding, and ambulating. Status at Discharge Functional status at discharge: independent ambulation Overall status at discharge: patient is progressing back to baseline Time Spent with Patient Time attestation: Total time spent providing and/or coordinating discharge services: Time spent: Less than 30 minutes DS: Data Data Completed and Pending Pending studies at discharge: Pending at discharge 07/13/21 08:55 Surgical [PTH] Routine Discharge Plan Discharge Patient Disposition: Home, Self-Care Stand Alone Forms: General Discharge Instructions Discharge Medications: Continued alprazolam 1 mg tablet 1 mg PO BID PRN (Reason: Anxiety) RF: 0 hydrocodone-acetaminophen 5-325 mg tablet 1 tablet PO Q6H PRN (Reason: Pain) RF: 0 potassium chloride 10 mEq tablet extended release 10 meq PO DAILY RF: 0 levothyroxine 88 mcg tablet 88 mcg PO DAILY RF: 0 gabapentin 300 mg capsule 600 mg PO HS RF: 0 furosemide 20 mg tablet 20 mg PO DAILY RF: 0 diltiazem HCl 60 mg Capsule,Extended Release 12 Hr 60 mg PO BID RF: 0 ergocalciferol (vitamin D2) [Vitamin D2] 1,250 mcg (50,000 unit) Capsule 1,250 mcg PO WEEKLY RF: 0 fluticasone propionate 50 mcg/actuation spray,suspension 1 spray INTRANASAL DAILY PRN (Reason: Allergic Symptoms) RF: 0 rosuvastatin 40 mg Tablet 40 mg PO HS RF: 0 diclofenac sodium 1 % gel 1 g TOPICAL DIRECTED PRN (Reason: Pain) RF: 0 melatonin 5 mg Capsule 5 mg PO HS RF: 0 norethindrone acetate 5 mg tablet 5 mg PO HS RF: 0 ascorbic acid (vitamin C) 500 mg Tablet 500 mg PO DAILY RF: 0 aspirin 325 mg Tablet 325 mg PO DAILY RF: 0 multivit,Ca,jdic-CU-zpkmcx-lut [id number] zl-qom-wsu-mcg Tablet 1 tablet PO DAILY RF: 0 promethazine 25 mg tablet 25 mg PO PRN PRN (Reason: Nausea) RF: 0
--- NOTE | 2021-07-13 09:24 | PC.NURSE ---
PRIOR NOTE ENTERED IN ERROR.
[2021-07-13] MEDS: fentaNYL CITRATE INJ (*CRX) 100 MCG/2 ML VIAL 25 MCG IV PUSH ×4 (09:46→10:25)
[2021-07-13] MEDS: DEXTROSE 5%/0.45% SOD CHL 1,000 ML 125 ML IV CONT ×2 (11:10→19:27)
[2021-07-13] MEDS: KETOROLAC 30 MG/ML VIAL (*BKC) IV PUSH ×3 (11:10→23:52)
[2021-07-13] MEDS: SIMETHICONE 80 MG TAB.CHEW PO ×2 (14:40→17:28)
[2021-07-13] MEDS: HYDROcodone/acetaminophen (*CRX) 5-325 MG TABLET 1 TAB PO (14:40)
[2021-07-13] MEDS: FUROSEMIDE 20 MG TABLET PO (14:41)
[2021-07-13] MEDS: HYDROcodone/acetaminophen (*CRX) 10-325 MG TABLET 1 TAB PO ×2 (17:28→21:19)
[2021-07-13] MEDS: GABAPENTIN 300 MG CAPSULE 600 MG PO (21:17)
[2021-07-13] MEDS: ALPRAZolam (*CRX) 0.5 MG TABLET 1 MG PO (21:18)
[2021-07-13] MEDS: ROSUVASTATIN 10 MG TABLET 40 MG PO (21:20)
[2021-07-14] MEDS: HYDROcodone/acetaminophen (*CRX) 10-325 MG TABLET 1 TAB PO ×6 (00:34→22:03)
[2021-07-14 03:40] VITALS: BP 105/48; PULSE 78; RESP 16; TEMP 36.6; O2SAT 94
[2021-07-14] MEDS: ALPRAZolam (*CRX) 0.5 MG TABLET 1 MG PO ×3 (04:07→21:43)
[2021-07-14 05:43] LABS: Basophils Percent Auto 0.2 % (0.2-1.2); Eosinophils Percent Auto 0.1 % (0-4.4); Hematocrit 38.2 % (37.0-47.0); Hemoglobin 11.7 g/dL (12.0-15.0); Immature Granulocyte Absolute 0.06 K/mm3 (0.00-0.031); Immature Granulocyte Percent A 0.5 % (0-0.5); Lymphocytes Absolute Auto 0.97 K/mm3 (0.9-3.2); Lymphocytes Percent Auto 7.9 % (18.3-44.2); Mean Corpuscular HGB Conc 30.6 g/dl (32-36); Mean Corpuscular Hemoglobin 26.1 pg (26-34); Mean Corpuscular Volume 85.1 fl (80-100); Monocytes Absolute Auto 1.6 K/mm3 (0.1-0.6); Monocytes Percent Auto 12.6 % (2.6-8.5); Neutrophils Absolute Auto 9.7 K/mm3 (1.3-6.7); Neutrophils Percent Auto 78.7 % (45.5-73.1); Platelet Count Result 253 k/mm3 (150-375); Red Blood Count 4.49 M/mm3 (4.2-5.4); Red Cell Distribution Width 14.9 % (11.5-14.5); White Blood Count 12.3 K/mm3 (4.5-10.0)
[2021-07-14] MEDS: KETOROLAC 30 MG/ML VIAL (*BKC) IV PUSH (07:20)
[2021-07-14] MEDS: SIMETHICONE 80 MG TAB.CHEW PO ×4 (07:20→21:43)
[2021-07-14] MEDS: FUROSEMIDE 20 MG TABLET PO (07:21)
[2021-07-14] MEDS: LEVOTHYROXINE SODIUM 88 MCG TABLET PO (07:22)
--- NOTE | 2021-07-14 07:27 | PM.GYNPNOP ---
GEOPHYSICS PROFESSOR - A/P Postoperative Procedures: Procedures Operation Date: 07/13/21 07:30 Actual Procedure Side Surgeon p Diagnostic Laparoscopy, Total Abdominal Hysterectomy, Bilateral Salpingo-oophorectomy Sheron Torrez MD Postoperative day: 1 Postoperative status: doing well Postoperative plan: routine post-op care Time Spent With Patient Time: Total time spent is greater than 50% in coordination of care (as documented) at patient's floor/unit and/or counseling patient: Time with patient: less than 15 minutes GEOPHYSICS PROFESSOR- PN:Subj Post-Op Subjective Date/time seen: 07/14/21 07:27 Subjective: patient has no complaints and pain is well controlled Exam Narrative: inc c/d/i abdomen soft, nd GEOPHYSICS PROFESSOR - PN: Obj Data Vital Signs Vital Signs: Vital Signs - 24 hr 07/13/21 07:29 07/13/21 09:28 07/13/21 09:40 Temperature 97.3 F L 97.2 F L Pulse Rate 91 81 71 Respiratory Rate 14 12 14 Blood Pressure 144/74 H 162/73 H 173/67 H Pulse Oximetry 98 97 99 07/13/21 09:55 07/13/21 10:10 07/13/21 10:25 Temperature Pulse Rate 72 85 78 Respiratory Rate 12 11 L 21 H Blood Pressure 161/58 H 147/56 H 161/61 H Pulse Oximetry 97 95 95 07/13/21 10:45 07/13/21 11:00 07/13/21 17:00 Temperature 97 F L 98.9 F Pulse Rate 70 70 70 Respiratory Rate 16 16 16 Blood Pressure 143/76 H 140/69 Pulse Oximetry 93 93 93 07/13/21 19:20 07/13/21 23:50 07/14/21 03:40 Temperature 97.2 F L 98.3 F 97.8 F Pulse Rate 86 78 78 Respiratory Rate 18 16 16 Blood Pressure 133/68 108/70 105/48 L Pulse Oximetry 94 95 94 Intake/Output Intake/Output: Intake & Output 07/11/21 07/12/21 07/13/21 07/14/21 23:59 23:59 23:59 23:59 Intake Total 2240 400 Output Total 2365 450 Balance -125 -50 Meds/Results Medications: Active Medications Generic Name Dose Route Start Last Admin Trade Name Freq PRN Reason Stop Dose Admin Hydrocodone Bitart/Acetaminophen 1 tab 07/13/21 10:34 07/13/21 14:40 Hydrocodone/Acetaminophen (*Crx) 5-325 Mg Tablet PO 1 tab Q3H PRN Administration Pain Rated 5 or Less Hydrocodone Bitart/Acetaminophen 1 tab 07/13/21 10:34 07/14/21 07:19 Hydrocodone/Acetaminophen (*Crx) 10-325 Mg Tablet PO 1 tab Q3H PRN Administration Pain Rated 6 or Greater Alprazolam 1 mg 07/13/21 19:46 07/14/21 04:15 Alprazolam (*Crx) 0.5 Mg Tablet PO 0.5 mg BID PRN Administration Anxiety Diltiazem HCl 60 mg 07/13/21 21:00 07/14/21 07:21 Diltiazem Hcl 12 Hr 60 Mg Cap.Er.12h PO 60 mg Q12HR PRIYANK Administration Fluticasone Propionate 1 spray 07/13/21 10:34 Fluticasone Propionate 0.05% Na Spr 16 Gm Btl (*Bkc) NASAL DAILY PRN Allergic Symptoms Furosemide 20 mg 07/13/21 11:00 07/14/21 07:21 Furosemide 20 Mg Tablet PO 20 mg DAILY PRIYANK Administration Gabapentin 600 mg 07/14/21 21:00 Gabapentin 300 Mg Capsule PO HS PRIYANK Dextrose/Sodium Chloride 1,000 mls @ 125 mls/hr 07/13/21 10:34 07/14/21 02:53 Dextrose 5% Sodium Chloride 0.45% IV CONT Not Given .Q8H PRIYANK Fentanyl Citrate 600 mcg in 30 mls @ 0.5 mls/hr 07/13/21 10:34 Fentanyl 600 Mcg/Ns 30 Ml Body And Fender Worker IV CONT .Q24H PRN BUFFER [employer] Management Protocol 10 MCG/HR Ibuprofen 600 mg 07/13/21 10:34 Ibuprofen 600 Mg Tablet PO Q6H PRN Cramping Ketorolac Tromethamine 30 mg 07/13/21 10:34 07/14/21 07:20 Ketorolac 30 Mg/Ml Vial (*Bkc) IV PUSH 07/18/21 10:33 30 mg Q6H PRN Administration Pain Rated 4-6 Levothyroxine Sodium 88 mcg 07/14/21 06:30 07/14/21 07:22 Levothyroxine Sodium 88 Mcg Tablet PO 88 mcg DAILY@0630 PRIYANK Administration Naloxone HCl 0.1 mg 07/13/21 10:34 Naloxone Hcl 0.4 Mg/Ml Vial IV PUSH Q2M PRN Respiratory rate less than 10 Ondansetron HCl 4 mg 07/13/21 10:34 Ondansetron Inj 4 Mg/2 Ml Vial IV PUSH Q6H PRN Nausea Potassium Chloride 10 meq 07/14/21 09:00 Potassium Chloride 10 Meq Tablet.Er PO
[2021-07-14] MEDS: FLUTICASONE PROPIONATE 0.05% NA SPR 16 GM BTL (*BKC) 1 SPRAY NASAL (07:37)
[2021-07-14 08:00] VITALS: BP 115/54; PULSE 76; RESP 18; TEMP 37.1
--- NOTE | 2021-07-14 10:13 | WPDANESPN ---
Anes - Prog Note Post-Op Date/Time: 07/14/21 10:13 Cardiovascular status: normal Respiratory status: normal Airway patency: baseline Mental status: baseline Post-Op hydration status: normal Vital Signs: Last Vital Signs Temp 37.1 C 07/14/21 08:00 Pulse 76 07/14/21 08:00 Resp 18 07/14/21 08:00 BP 115/54 L 07/14/21 08:00 Pulse Ox 94 07/14/21 03:40 Pain Score (VAS): 10 I/O: Intake & Output 07/13/21 07/14/21 07/14/21 23:59 07:59 15:59 Intake Total 2240 400 900 Output Total 2325 450 1200 Balance -85 -50 -300 Laboratory Tests 07/14/21 04:10 07/14/21 04:10 WBC 12.3 H RBC 4.49 Hgb 11.7 L Hct 38.2 MCV 85.1 MCH 26.1 MCHC 30.6 L RDW 14.9 H Plt Count 253 MPV 12.0 H Immature Gran % (Auto) 0.5 Neut % (Auto) 78.7 H Lymph % (Auto) 7.9 L [place] % (Auto) 12.6 H Eos % (Auto) 0.1 Baso % (Auto) 0.2 Lymph # (Auto) 0.97 [place] # (Auto) 1.6 H Eos # (Auto) 0.0 Baso # (Auto) 0.0 Abs Immat Gran (auto) 0.06 H Absolute Neuts (auto) 9.7 H Absolute Nucleated RBC 0.0 Nucleated RBC % 0.0 Post-procedural complaints: none Patient Feedback: Patient satisfied with anesthetic care.
[2021-07-14 12:00] VITALS: BP 120/60; PULSE 68; RESP 18; TEMP 36.7
[2021-07-14] MEDS: IBUPROFEN 600 MG TABLET PO ×2 (14:10→22:03)
[2021-07-14] MEDS: ACETAMINOPHEN 500 MG TABLET 1000 MG PO (15:53)
[2021-07-14 16:00] VITALS: BP 134/64; PULSE 79; RESP 16; TEMP 36.8
[2021-07-14 19:00] VITALS: BP 136/54; PULSE 81; RESP 16; TEMP 36.9; O2SAT 97
[2021-07-14 21:35] VITALS: BP 148/54; PULSE 76
[2021-07-14] MEDS: ROSUVASTATIN 10 MG TABLET 40 MG PO (21:39)
[2021-07-14] MEDS: GABAPENTIN 300 MG CAPSULE 600 MG PO (21:39)
[2021-07-15] MEDS: HYDROcodone/acetaminophen (*CRX) 10-325 MG TABLET 1 TAB PO ×2 (01:24→07:08)
[2021-07-15] MEDS: SIMETHICONE 80 MG TAB.CHEW PO (01:25)
[2021-07-15] MEDS: LEVOTHYROXINE SODIUM 88 MCG TABLET PO (07:07)
[2021-07-15] MEDS: IBUPROFEN 600 MG TABLET PO (07:07)
[2021-07-15 07:08] VITALS: BP 108/57; PULSE 78; RESP 16; TEMP 36.4; O2SAT 96
[2021-07-15] MEDS: POTASSIUM CHLORIDE 10 MEQ TABLET.ER PO (08:49)
[2021-07-15] MEDS: FUROSEMIDE 20 MG TABLET PO (08:50)
== END 2021-07-15 10:45 | disposition home or self-care (01) | DRG 743 ==
LOC: ANHOB2 10:38
PROVIDERS: Admitting Provider Obstetrics & Gynecology Gynecology; PCP Family Medicine; Visit Provider Obstetrics & Gynecology
PROC: 0UT9FZZ Resection of Uterus, Via Natural or Artificial Opening With Percutaneous Endoscopic Assistance (ICD-10-PCS; principal; 2021-07-13 07:30)
DX: N95.0 Postmenopausal bleeding (principal); D25.9 Leiomyoma of uterus, unspecified; N83.8 Other noninflammatory disorders of ovary, fallopian tube and broad ligament; I10 Essential (primary) hypertension; K21.9 Gastro-esophageal reflux disease without esophagitis; E78.5 Hyperlipidemia, unspecified; E03.9 Hypothyroidism, unspecified; G47.33 Obstructive sleep apnea (adult) (pediatric); Z87.891 Personal history of nicotine dependence; Z96.643 Presence of artificial hip joint, bilateral; Z96.659 Presence of unspecified artificial knee joint; Z79.899 Other long term (current) drug therapy; Z53.31 Laparoscopic surgical procedure converted to open procedure
CPT/HCPCS: 36415; 80048; 85025; 86850; 86900; 86901; 88307; 93005; 99199; A9270; C9803; J0690; J1100; J1885; J2250; J2370; J2405; J2704; J2710; J3010; J7120; U0003; U0005

== ENCOUNTER → 2022-06-15 12:31 | Outpatient (CLI) | payer MEDICARE, SELFPAY ==
--- NOTE | ~2022-06-15 | MM_ITS ---
EXAMINATION: MM screening ifeanyi BI w geovany HISTORY: Screening mammogram, family history of breast cancer in her daughter. TECHNIQUE: Craniocaudal and mediolateral oblique 3-D tomosynthesis images were obtained and synthetic 2-D images were generated. CAD analysis was submitted and interpreted. COMPARISON: 02/04/2021, 10/04/2018, 07/06/2017 BREAST PARENCHYMAL COMPOSITION: There are scattered areas of fibroglandular density. FINDINGS: There is no suspicious mass, calcification, or architectural distortion to suggest malignan cy in either breast. There has been no suspicious interval change. IMPRESSION: 1. No mammographic evidence of malignancy. 2. Recommend routine screening mammography in one year. BI-RADS Category 1: Negative Reviewed, dictated and finalized at location A.
== END ==
PROVIDERS: PCP Family Medicine; Visit Provider Obstetrics & Gynecology Gynecology
DX: Z12.31 Encounter for screening mammogram for malignant neoplasm of breast (principal)
CPT/HCPCS: 77063; 77067

== ENCOUNTER → 2023-07-04 11:14 | Outpatient (CLI) | payer MEDICARE, SELFPAY ==
--- NOTE | ~2023-07-04 | MM_ITS ---
EXAMINATION: MM screening ifeanyi BI w geovany HISTORY: Screening mammogram TECHNIQUE: Craniocaudal and mediolateral oblique 3-D tomosynthesis images were obtained and synthetic 2-D images were generated. CAD analysis was submitted and interpreted. COMPARISON: 06/2022, 02/04/2021 bilateral screening mammogram examinations BREAST PARENCHYMAL COMPOSITION: The breasts are almost entirely fatty. FINDINGS: There is no evidence of suspicious mass, calcification, or architectural distortion to sugg est malignancy in either breast. There has been no suspicious interval change. IMPRESSION: 1. No mammographic evidence of malignancy. 2. Recommend routine screening mammography in one year. BI-RADS Category 1: Negative Reviewed, dictated and finalized at location A.
== END ==
PROVIDERS: PCP Family Medicine; Visit Provider Obstetrics & Gynecology Gynecology
DX: Z12.31 Encounter for screening mammogram for malignant neoplasm of breast (principal)
CPT/HCPCS: 77063; 77067

== ENCOUNTER 2024-02-08 10:57 | Outpatient (CLI) | payer MEDICARE, OTHER, SELFPAY ==
--- NOTE | ~2024-02-08 | DEXA_ITS ---
Bone Density Report Name: JUAN ALVARENGA Age: 78 Sex: Female Ethnicity: White Date of : 1945 Indication: postmenopausal; screening for osteoporosis; height loss; prior fracture; Referring Provider: ANTONIO MAJANO Study: Bone densitometry was performed. Exam Date: February 08, 2024 Accession number: [id number] Bone Density: Region BMD T-score Z-score Classification AP Spine (L1-L4) 1.118 0.6 3.3 Normal World Health Organization criteria for BMD impression classify patients as: Normal (T-score at or above -1.0), Osteopenia (T-score between -1.0 and -2.5), or Osteoporosis (T-score at or below -2.5). Previous Exams: Region Exam Age BMD T-score BMD Change BMD Change Date g/cm2 vs Baseline vs Previous AP Spine(L1-L4) 02/08/2024 78 1.118 0.6 0.032 -0.096* 02/04/2021 75 1.214 1.5 0.128 0.038* 07/06/2017 71 1.176 1.2 0.090 0.041 06/30/2015 69 1.135 0.8 0.049* 0.031* 06/20/2013 67 1.104 0.5 0.018 0.018 05/12/2011 65 1.086 0.4 *Denotes significance at 95% confidence level, LSC for AP Spine = 0.022 g/cm2 Clinical Information Provided by Patient: Has had a low trauma fracture Has used the following medications: Vitamin D, MTV Patient maximum height was 69.75 Menopause Age: 49 Does not regularly consume dairy products Drinks caffeinated beverages Onset of menses at age 10 Number of children 5 Impression: The patient has normal bone mass. The patient has risk factors, including: previous fracture. The BMD for the AP Spine(L1-L4) decreased, changing by -0.096 since the last DXA exam. Discussion: LOW RISK OF FRACTURE; BONE DENSITY IS WELL ABOVE THE MINIMUM DESIRABLE LEVEL AND ABOVE AVERAGE FOR AGE AND SEX AT ALL SKELETAL SITES TESTED. This person's bone density is above expected limits for age and sex. This is rarely clinically significant, but should be pursued if there are significant musculoskeletal complaints. The patient should follow a healthful lifestyle (good nutrition with adequate calcium and vitamin D, and appropriate weight-bearing exercise). Follow-Up: Consider repeating this study in 3 to 4 years to reassess this patient's status, or sooner if there is some new clinical indication. Reported by: LYNDA on 02/08/2024 1:57:00 PM. Reviewed, dictated and finalized at location A.
== END 2024-02-08 10:58 ==
PROVIDERS: PCP Family Medicine; Visit Provider Obstetrics & Gynecology Gynecology
DX: Z13.820 Encounter for screening for osteoporosis (principal); Z78.0 Asymptomatic menopausal state
CPT/HCPCS: 77080